=== PATIENT | female | born 1970 | race Caucasian/White ===

== ENCOUNTER 2018-05-28 05:09 | Observation (INO) ==
--- NOTE | 2018-05-14 09:07 | EKG Report ---
Test Performed on : 05/14/2018 08:54:40 AM Test Reason : PAT Blood Pressure : / mmHG Vent. Rate : 076 BPM Atrial Rate : 076 BPM P-R Int : 146 ms QRS Dur : 078 ms QT Int : 388 ms P-R-T Axes : 077 -08 079 degrees QTc Int : 436 ms Normal sinus rhythm. with sinus arrhythmia. Poor R-wave progression V2-V4 Abnormal ECG When compared with ECG of 28-JUN-2015 19:10, [place] has shifted left Confirmed by Lisa HANCOCK, King Berg ([id number]) on 05/14/2018 10:21:09 PM
[2018-05-14 09:24] LABS: HEMATOCRIT 47.3 % (37.0-47.0); HEMOGLOBIN 15.5 g/dL (12.0-16.0); MCH 30.9 PG (27-31); MCHC 32.8 g/dL (33-37); MCV 94.2 FL (81-99); MPV 8.8 FL (7.4-10.4); RBC 5.02 XMIL (4.2-5.4); RDW 12.7 % (11.5-14.5); WBC 16.48 X1000 (4.8-10.8)
[2018-05-14 10:24] LABS: AGAP 11; BUN 13 mg/dL (8-22); CALCIUM 9.2 mg/dL (8.8-10.2); CHLORIDE 104 mmol/L (98-107); COSMO 278; CREATININE 0.7 mg/dL (0.5-0.9); ESTIMATED GFR > 60; GLUCOSE 78 mg/dL (70-104); POTASSIUM 4.4 mmol/L (3.5-5.1); SODIUM 140 mmol/L (136-145); TCO2 25 mmol/L (25-35)
[2018-05-28] MEDS ORDERED: KEFZOL 1 GM/D5W 1 GM/50 ML IVPB ONE (05:36)
[2018-05-28] MEDS ORDERED: PEPCID ONE (05:36)
[2018-05-28] MEDS ORDERED: LR 1,000 ML ONE (05:36)
[2018-05-28] MEDS ORDERED: REGLAN ONE (05:36)
[2018-05-28] MEDS ORDERED: SENSORCAINE-MPF 0.5%/EPI 1:200,000 ONE (06:14)
[2018-05-28] MEDS ORDERED: SENSORCAINE 0.5%-EPI 1:200,000 ONE (06:14)
[2018-05-28] MEDS ORDERED: VERSED ONE (06:15)
[2018-05-28] MEDS ORDERED: FENTANYL ONE ×2 (06:15→07:18)
[2018-05-28] MEDS ORDERED: DIPRIVAN 1% ONE (06:16)
[2018-05-28] MEDS ORDERED: ZOFRAN ONE (06:21)
[2018-05-28] MEDS ORDERED: QUELICIN (DOSE) ONE (06:21)
[2018-05-28] MEDS ORDERED: XYLOCAINE-MPF 2% ONE (06:21)
[2018-05-28] MEDS ORDERED: DECADRON ONE (06:21)
[2018-05-28] MEDS ORDERED: PITRESSIN ONE (08:10)
[2018-05-28] MEDS ORDERED: EPHEDRINE ONE (08:10)
--- NOTE | 2018-05-28 08:50 | OPERATIVE NOTE ---
PROCEDURE DATE: 05/28/2018 PROCEDURE PERFORMED: Left thyroid lobectomy. SURGEON: Russ Ferraro MD. [employer] REPAIRER: MAN Daly. PREOPERATIVE DIAGNOSIS: Follicular neoplasm, left thyroid lobe. POSTOPERATIVE DIAGNOSIS: Thyroiditis. DESCRIPTION OF PROCEDURE: After satisfactory general endotracheal anesthesia was achieved, the skin crease was marked. The neck was gently extended. She was placed in reverse Trendelenburg position. The neck was prepped and draped in a sterile fashion. We measured 5 cm on each side of the midline. We anesthetized the skin with 0.5 Marcaine with epinephrine. We then incised the skin, and carried our incision through the platysma. We raised a subplatysmal plane to the thyroid prominence, inferiorly to the sternal notch. We placed our Gelpi retractors. We then incised the cervical fascia in the midline, both cephalad and caudad. We palpated the right thyroid lobe. It was somewhat nodular. On the left side though, was the area of concern. We dissected the strap muscles off the left thyroid lobe. We dissected the superior pole vessels and divided them with the LigaSure. We exposed the trachea inferiorly, then rolled the gland medially, and we dissected lateral and posterior to the gland. We identified the recurrent nerve, and followed it all the way to its entrance underneath the muscle. We took care not to injure it. We could not identified for certain the parathyroid, but we stayed close to the gland, and achieved hemostasis with the electrocautery or the LigaSure until the gland came up to the trachea. We then divided the isthmus with the LigaSure, and we then took the left thyroid lobe off the trachea and sent it for frozen section. Hemostasis was satisfactory. A frozen section came back as thyroiditis with no evidence of malignancy. So, we felt there was no reason to take out the right thyroid lobe. We then obtained a Hamilton drain and passed it from inferiorly into the left of the midline on the anterior chest wall, into the wound, and placed a drain in the left thyroid lobe fossa which continued to be hemostatic. We then approximated the cervical fascia with interrupted 3-0 Polysorb. We reapproximated the platysma with interrupted 3-0 Polysorb. Once again, injected with 0.5 Marcaine with epinephrine in the subcutaneous tissue. We then closed the skin with a 4-0 Polysorb subcuticular stitch. A 2-0 silk was used to secure the drain at the skin level. Sterile dressings applied. She tolerated it well. Was sent to the recovery room in satisfactory condition. cc: Russ Ferraro MD
[2018-05-28] MEDS: ULTRAM ONE ×2 (08:55→22:43)
[2018-05-28] MEDS: DILAUDID ONE ×5 (08:56→22:43)
[2018-05-28] MEDS ORDERED: NS 1,000 ML ONE (08:56)
[2018-05-28] MEDS: ZOFRAN IV PRN ×4 (10:12→23:28)
[2018-05-28] MEDS: DILAUDID IV PRN ×2 (11:34→14:36)
[2018-05-28] MEDS: ULTRAM PO PRN ×2 (17:08→23:28)
[2018-05-28] MEDS: ESTRACE PO SCH (18:12)
[2018-05-28] MEDS: NS 1,000 ML IV SCH ×2 (18:13→22:56)
[2018-05-28] MEDS: MOBIC PO SCH (18:13)
--- NOTE | 2018-05-28 22:06 | GENERAL SURGERY PROGRESS NOTE ---
DATE: 05/28/2018 TIME: 5:45 p.m. Ms. Stearns is awake and alert. She has taken a little bit of liquid but her primary complaint is nausea. Her pain relief seems to be adequate. She has only a minimal amount of drainage in her drain. The plan will be to check her calcium in the morning, will advance her diet and discharge her tomorrow if all is well. cc: Russ Ferraro MD
[2018-05-28] MEDS: PERIDEX MT SCH (22:56)
[2018-05-29] MEDS ORDERED: SYNTHROID PO SCH (07:00)
[2018-05-29] MEDS: ZOFRAN IV PRN (07:22)
[2018-05-29] MEDS: ULTRAM PO PRN (07:23)
[2018-05-29 07:39] VITALS: BP 139/89
--- NOTE | 2018-05-29 07:53 | GENERAL SURGERY PROGRESS NOTE ---
DATE: 05/29/2018 This morning, Ms. Stearns is doing generally well. Her nausea is much improved. She has had only about 30 mL of output of her drain so we will remove her drain today. Her [place]'s sign is negative. The plan is to discharge her today after removal of her drain. We will give her something for pain and nausea, and she will resume her usual thyroid medications. Return to see me in a week. cc: Russ Ferraro MD
[2018-05-29] MEDS: ESTRACE PO SCH (08:05)
[2018-05-29] MEDS: MOBIC PO SCH (08:05)
[2018-05-29] MEDS: PERIDEX MT SCH (08:05)
== END 2018-05-29 09:24 | disposition home or self-care (01) ==
LOC: 4N 05:09 → SURHOLD 05:09 → OR 05:09 → MED 08:45 → SURHOLD 08:49 → 4N 08:49 → MED 05-29 09:24 → 4N 05-30 10:43
PROVIDERS: ADMIT Surgery; ATTEND Surgery
CPT/HCPCS: 80048; 82310; 85027; 88307; 88331; 93005; 93010; 94761; 94799; A9270; J0330; J0690; J1100; J1170; J2250; J2405; J3010; J7030; J7120